=== PATIENT | female | born 1960 | race Caucasian/White ===

== ENCOUNTER → 2016-07-25 | Outpatient (CLI) | payer BC ==
[~2016-07-25] MED LIST: ACCUNEB 0.0.63 MG/3 PO; ADVAIR 250/501 EA INH; ALBUTEROL0.09 MG/A2 IH; ATIVAN1 MG PO; CARAFATE1 G1 PO; DOXYCYCLINE100 M3 PO; FLONASE ALLERG9.9 ML NAS; HYDROCODONE BIT1 T11 PO; LEXAPRO20 MG PO; MEDROL DOSEPAK4 MG PO; MOTRIN400 MG PO; NEXIUM20 MG PO; NEXIUM40 MG PO; OMNICEF300 MG PO; PREDNISONE2.5 MG PO; PROAIR HFA0.09 MG/AC PO; PROZAC20 MG PO; SINGULAIR10 MG PO; TESSALON PERLE200 MG PO; VICODIN ES 7501 TAB PO
== END | disposition home or self-care (01) ==
LOC: MRI 06:50
DX: M51.37 Other intervertebral disc degeneration, lumbosacral region (principal); M47.896 Other spondylosis, lumbar region; M54.5 Low back pain; Z91.81 History of falling

== ENCOUNTER → 2016-08-01 | Outpatient (CLI) | payer BC | END | disposition home or self-care (01) | LOC: LAB 20:05 | DX: R19.7 Diarrhea, unspecified (principal) ==

== ENCOUNTER → 2017-02-02 | Outpatient (CLI) | payer BC | END | disposition home or self-care (01) | LOC: MAMMO 12:35 | DX: N64.4 Mastodynia (principal) ==

== ENCOUNTER → 2019-01-01 | Outpatient (CLI) | payer BC | END | disposition home or self-care (01) | LOC: RAD 12:55 | DX: M81.0 Age-related osteoporosis without current pathological fracture (principal); Z78.0 Asymptomatic menopausal state; Z90.710 Acquired absence of both cervix and uterus ==

== ENCOUNTER → 2019-04-11 | Outpatient (CLI) | payer BC | END | disposition home or self-care (01) | LOC: RAD 11:45 | DX: M41.86 Other forms of scoliosis, lumbar region (principal); M48.061 Spinal stenosis, lumbar region without neurogenic claudication ==

== ENCOUNTER → 2019-05-13 | Outpatient (CLI) | payer BC | END | disposition home or self-care (01) | LOC: RAD 11:37 | DX: R05 Cough (principal); R06.02 Shortness of breath ==

== ENCOUNTER → 2019-06-13 | Outpatient (CLI) | payer BC | END | disposition home or self-care (01) | LOC: CT 10:33 | DX: R05 Cough (principal); R06.02 Shortness of breath; R06.2 Wheezing ==

== ENCOUNTER → 2019-12-27 | Outpatient (CLI) | payer BC | END | disposition home or self-care (01) | LOC: CARD 11:29 | PROVIDERS: ATTEND Nurse Practitioner Family | DX: I47.2 Ventricular tachycardia (principal); R07.89 Other chest pain; R06.02 Shortness of breath; E78.5 Hyperlipidemia, unspecified; Z23 Encounter for immunization ==

== ENCOUNTER → 2020-02-13 | Outpatient (CLI) | payer BC ==
[~2020-02-13] MED LIST changes: +ZITHROMAX250 MG PO
== END | disposition home or self-care (01) ==
LOC: COVID19 03:08
PROVIDERS: ATTEND Nurse Practitioner Family
DX: U07.1 COVID-19 (principal)

== ENCOUNTER 2020-03-28 18:20 | Emergency (ER) | payer BC ==
[~2020-03-28] VITALS: Wt 86.2 kg
[~2020-03-28 18:20] MED LIST changes: -ZITHROMAX250 MG PO
[2020-03-28 21:22] LABS: BASO % 0.4 % (0.0-1.0); EOS # 0.2 10*3/uL (0.0-0.4); EOS % 2.7 % (1.0-4.0); HEMATOCRIT 43.6 % (37.0-47.0); LYMPH # 0.7 10*3/uL (1.3-4.4); LYMPH % 7.6 % (27.0-41.0); MEAN CELL VOLUME 86.2 fl (81.0-99.0); MEAN CORPUSCULAR HGB 28.3 pg (27.0-31.0); MEAN CORPUSCULAR HGB CONC 32.8 g/dl (33.0-37.0); MEAN PLATELET VOLUME 9.4 fl (9.6-12.3); MONO # 0.3 10*3/uL (0.1-1.0); NEUT # 7.7 10*3/uL (2.3-7.9); NEUT % 85.9 % (47.0-73.0); PLATELET COUNT AUTOMATED 270 10*3/uL (130-400); RED BLOOD COUNT 5.06 10*6/uL (4.10-5.10); RED CELL DISTRI WIDTH 13.2 % (0-14.5)
[2020-03-28 21:39] LABS: ALBUMIN 4.4 gm/dl (3.1-4.5); CREATININE 1.22 mg/dL (0.55-1.02); POTASSIUM 3.6 mmol/L (3.5-5.1); TOTAL PROTEIN 7.9 gm/dL (6.4-8.2)
[2020-03-28 22:17] VITALS: BP 157/81
[2020-03-28] MEDS ORDERED: ZITHROMAX250 MG PO (22:24)
== END 2020-03-28 22:30 | disposition home or self-care (01) ==
LOC: ED 18:20
PROVIDERS: Physician Assistant
DX: J18.9 Pneumonia, unspecified organism (principal); Z88.1 Allergy status to other antibiotic agents; Z79.899 Other long term (current) drug therapy

== ENCOUNTER → 2020-04-28 | Outpatient (CLI) | payer BC ==
[~2020-04-28] MED LIST changes: +ALBUTEROL0.63 MG/3 INH; +LIPITOR10 MG PO; +PREDNISONE10 MG PO; +PROTONIX40 MG PO; +ZITHROMAX250 MG PO
== END | disposition home or self-care (01) ==
LOC: RAD 11:00
PROVIDERS: ATTEND Nurse Practitioner Family
DX: R05 Cough (principal); J18.9 Pneumonia, unspecified organism; U07.1 COVID-19

== ENCOUNTER 2020-05-04 15:50 | Inpatient (IN) | payer BC ==
[~2020-05-04] VITALS: Ht 170.1 cm; Wt 86.2 kg
[~2020-05-04 15:50] MED LIST changes: -ALBUTEROL0.63 MG/3 INH; -LIPITOR10 MG PO; -PREDNISONE10 MG PO; -PROTONIX40 MG PO
[2020-05-04 15:53] VITALS: BP 164/82
[2020-05-04 16:07] VITALS: BP 161/89
[2020-05-04 17:42] LABS: BASO % 0.5 % (0.0-1.0); EOS # 0.1 10*3/uL (0.0-0.4); EOS % 1.5 % (1.0-4.0); HEMATOCRIT 41.9 % (37.0-47.0); LYMPH # 0.7 10*3/uL (1.3-4.4); LYMPH % 9.4 % (27.0-41.0); MEAN CELL VOLUME 84.1 fl (81.0-99.0); MEAN CORPUSCULAR HGB 28.1 pg (27.0-31.0); MEAN CORPUSCULAR HGB CONC 33.4 g/dl (33.0-37.0); MEAN PLATELET VOLUME 9.5 fl (9.6-12.3); MONO # 0.2 10*3/uL (0.1-1.0); MONO % 2.8 % (3.0-9.0); NEUT # 6.3 10*3/uL (2.3-7.9); NEUT % 85.4 % (47.0-73.0); PLATELET COUNT AUTOMATED 248 10*3/uL (130-400); RED BLOOD COUNT 4.98 10*6/uL (4.10-5.10); RED CELL DISTRI WIDTH 12.8 % (0-14.5); WHITE BLOOD COUNT 7.4 10*3/uL (4.8-10.8)
[2020-05-04 17:58] LABS: ALKALINE PHOSPHATASE 95 U/L (45-117); BUN 11 mg/dl (7-24); CHLORIDE 110 mmol/L (98-107); CREATININE 1.11 mg/dL (0.55-1.02); POTASSIUM 2.9 mmol/L (3.5-5.1); SGOT/AST 14 IU/L (3-35); SGPT/ALT 22 U/L (12-78); SODIUM 142 mmol/L (136-145); TOTAL PROTEIN 7.1 gm/dL (6.4-8.2)
[2020-05-04 18:07] VITALS: BP 145/75
[2020-05-04 18:10] LABS: TROPONIN I < 0.015 ng/ml (<0.045)
[2020-05-04 22:08] VITALS: BP 129/85
[2020-05-05 02:30] VITALS: BP 157/92
[2020-05-05] MEDS ORDERED: PROTONIX40 MG PO (04:32)
[2020-05-05] MEDS ORDERED: LIPITOR10 MG PO (04:33)
[2020-05-05 06:48] LABS: HEMATOCRIT 40.3 % (37.0-47.0); MEAN CORPUSCULAR HGB 28.5 pg (27.0-31.0); MEAN CORPUSCULAR HGB CONC 32.8 g/dl (33.0-37.0); MEAN PLATELET VOLUME 9.6 fl (9.6-12.3); PLATELET COUNT AUTOMATED 262 10*3/uL (130-400); RED BLOOD COUNT 4.63 10*6/uL (4.10-5.10); RED CELL DISTRI WIDTH 13.1 % (0-14.5); WHITE BLOOD COUNT 7.2 10*3/uL (4.8-10.8)
[2020-05-05 07:12] LABS: TOTAL CELLS COUNTED 100 #CELLS
[2020-05-05 07:13] LABS: BURR CELLS FEW; PLATELET SUFFICIENCY NORMAL (NORMAL)
[2020-05-05 07:14] LABS: ACT PARTIAL THROMBO TIME 28.2 SECONDS (20.0-32.1)
[2020-05-05 07:27] LABS: ALBUMIN 3.6 gm/dl (3.1-4.5); ALKALINE PHOSPHATASE 90 U/L (45-117); BUN 9 mg/dl (7-24); CHLORIDE 111 mmol/L (98-107); CHOLESTEROL 163 mg/dL (<200); CREATININE 0.89 mg/dL (0.55-1.02); POTASSIUM 3.7 mmol/L (3.5-5.1); SGOT/AST 11 IU/L (3-35); SGPT/ALT 22 U/L (12-78); SODIUM 138 mmol/L (136-145); TOTAL PROTEIN 6.9 gm/dL (6.4-8.2); TRIGLYCERIDES 43 mg/dl (<150); VLDL CHOLESTEROL 9 mg/dL (6-40)
[2020-05-05 07:29] LABS: VITAMIN D, 25-HYDROXY 32.9 ng/mL (30-100)
[2020-05-05 07:34] LABS: FREE T4 1.26 ng/dl (0.76-1.46); HDL CHOLESTEROL 57 mg/dl (40-60); LDL CHOLESTEROL 97 mg/dL (9-159)
[2020-05-05 08:00] VITALS: BP 142/82
[2020-05-05 12:00] VITALS: BP 152/74
[2020-05-05 16:00] VITALS: BP 137/68
[2020-05-05 20:00] VITALS: BP 130/75
[2020-05-06] VITALS: BP 137/76
[2020-05-06 08:00] VITALS: BP 122/66
[2020-05-06 12:00] VITALS: BP 126/68
[2020-05-06 16:00] VITALS: BP 137/71
[2020-05-06 20:01] VITALS: BP 148/79
[2020-05-07] VITALS: BP 142/82
[2020-05-07 08:00] VITALS: BP 174/83
[2020-05-07 12:00] VITALS: BP 149/67
[2020-05-07 16:00] VITALS: BP 132/86
[2020-05-07 20:00] VITALS: BP 150/80
[2020-05-08] VITALS (8 sets, daily range): BP systolic 128–146; BP diastolic 66–96
[2020-05-08 06:20] LABS: BASO % 0.1 % (0.0-1.0); HEMATOCRIT 39.7 % (37.0-47.0); LYMPH # 0.8 10*3/uL (1.3-4.4); LYMPH % 8.1 % (27.0-41.0); MEAN CELL VOLUME 87.6 fl (81.0-99.0); MEAN CORPUSCULAR HGB 28.7 pg (27.0-31.0); MEAN CORPUSCULAR HGB CONC 32.7 g/dl (33.0-37.0); MEAN PLATELET VOLUME 9.5 fl (9.6-12.3); MONO # 0.4 10*3/uL (0.1-1.0); MONO % 3.7 % (3.0-9.0); NEUT % 86.8 % (47.0-73.0); PLATELET COUNT AUTOMATED 252 10*3/uL (130-400); RED BLOOD COUNT 4.53 10*6/uL (4.10-5.10); RED CELL DISTRI WIDTH 13.3 % (0-14.5); WHITE BLOOD COUNT 10.3 10*3/uL (4.8-10.8)
[2020-05-08 06:32] LABS: ALBUMIN 3.4 gm/dl (3.1-4.5); BUN 16 mg/dl (7-24); CHLORIDE 112 mmol/L (98-107); SODIUM 143 mmol/L (136-145)
[2020-05-08 06:35] LABS: ALKALINE PHOSPHATASE 84 U/L (45-117); CREATININE 0.95 mg/dL (0.55-1.02); SGOT/AST 12 IU/L (3-35); SGPT/ALT 25 U/L (12-78); TOTAL PROTEIN 6.2 gm/dL (6.4-8.2)
[2020-05-09] VITALS: BP 132/81
[2020-05-09 08:00] VITALS: BP 134/83
[2020-05-09 11:07] LABS: ACID FAST SPEC PROCESSING Concentration (.)
[2020-05-09 12:00] VITALS: BP 162/76
[2020-05-09] MEDS ORDERED: ALBUTEROL0.63 MG/3 INH (15:00)
[2020-05-09] MEDS ORDERED: DOXYCYCLINE100 M3 PO (15:00)
[2020-05-09] MEDS ORDERED: PREDNISONE10 MG PO (15:00)
[2020-05-09 16:00] VITALS: BP 92/76
[2020-06-11 15:08] LABS: M GORDONAE Not Indicated (.); M KANSASII Not Indicated (.); M TUBERCULOSIS COMPLEX Negative (.)
[2020-06-12 09:35] LABS: ACID FAST CULTURE Positive (.); M AVIUM COMPLEX Positive (.)
== END 2020-05-09 18:35 | disposition home or self-care (01) | DRG 871 ==
LOC: ED 15:50 → EDHOLD 19:44 → 5E 19:44
PROVIDERS: Hospitalist; Internal Medicine Critical Care Medicine; Physician Assistant; Registered Nurse; ADMIT Internal Medicine; ATTEND Internal Medicine
PROC: 0BC98ZZ Extirpation of Matter from Lingula Bronchus, Via Natural or Artificial Opening Endoscopic (ICD-10-PCS; principal; 2020-05-08)
PROC: 0BC48ZZ Extirpation of Matter from Right Upper Lobe Bronchus, Via Natural or Artificial Opening Endoscopic (ICD-10-PCS; 2020-05-08)
PROC: 0BC88ZZ Extirpation of Matter from Left Upper Lobe Bronchus, Via Natural or Artificial Opening Endoscopic (ICD-10-PCS; 2020-05-08)
PROC: 0BC58ZZ Extirpation of Matter from Right Middle Lobe Bronchus, Via Natural or Artificial Opening Endoscopic (ICD-10-PCS; 2020-05-08)
PROC: 0BC38ZZ Extirpation of Matter from Right Main Bronchus, Via Natural or Artificial Opening Endoscopic (ICD-10-PCS; 2020-05-08)
PROC: 0BC78ZZ Extirpation of Matter from Left Main Bronchus, Via Natural or Artificial Opening Endoscopic (ICD-10-PCS; 2020-05-08)
PROC: 0BC68ZZ Extirpation of Matter from Right Lower Lobe Bronchus, Via Natural or Artificial Opening Endoscopic (ICD-10-PCS; 2020-05-08)
PROC: 0BCB8ZZ Extirpation of Matter from Left Lower Lobe Bronchus, Via Natural or Artificial Opening Endoscopic (ICD-10-PCS; 2020-05-08)
PROC: 0BC18ZZ Extirpation of Matter from Trachea, Via Natural or Artificial Opening Endoscopic (ICD-10-PCS; 2020-05-08)
DX: A41.9 Sepsis, unspecified organism (principal); J18.9 Pneumonia, unspecified organism; N17.0 Acute kidney failure with tubular necrosis; E87.2 Acidosis; J45.41 Moderate persistent asthma with (acute) exacerbation; R65.20 Severe sepsis without septic shock; R73.9 Hyperglycemia, unspecified; E87.6 Hypokalemia; I25.10 Atherosclerotic heart disease of native coronary artery without angina pectoris; F41.9 Anxiety disorder, unspecified; K21.9 Gastro-esophageal reflux disease without esophagitis; N18.9 Chronic kidney disease, unspecified; E78.2 Mixed hyperlipidemia; E87.8 Other disorders of electrolyte and fluid balance, not elsewhere classified; E66.3 Overweight; M16.10 Unilateral primary osteoarthritis, unspecified hip; J40 Bronchitis, not specified as acute or chronic; Z20.822 Contact with and (suspected) exposure to COVID-19; Z88.1 Allergy status to other antibiotic agents; Z88.8 Allergy status to other drugs, medicaments and biological substances; Z79.899 Other long term (current) drug therapy; Z79.51 Long term (current) use of inhaled steroids; Z90.710 Acquired absence of both cervix and uterus; Z90.49 Acquired absence of other specified parts of digestive tract; Z82.5 Family history of asthma and other chronic lower respiratory diseases; Z83.79 Family history of other diseases of the digestive system; Z86.16 Personal history of COVID-19; Z68.29 Body mass index [BMI] 29.0-29.9, adult

== ENCOUNTER → 2020-10-07 | Outpatient (CLI) | payer BC ==
[~2020-10-07] MED LIST changes: +ALBUTEROL0.63 MG/3 INH; +LIPITOR10 MG PO; +PREDNISONE10 MG PO; +PROTONIX40 MG PO
== END | disposition home or self-care (01) ==
LOC: MAMMO 07:30
PROVIDERS: ATTEND Nurse Practitioner Family
DX: Z12.31 Encounter for screening mammogram for malignant neoplasm of breast (principal); N63.21 Unspecified lump in the left breast, upper outer quadrant

== ENCOUNTER → 2021-06-10 | Outpatient (CLI) | payer BC | END | disposition home or self-care (01) | LOC: RAD 15:31 | PROVIDERS: ATTEND Nurse Practitioner Family | DX: M47.816 Spondylosis without myelopathy or radiculopathy, lumbar region (principal) ==

== ENCOUNTER → 2022-06-06 | Outpatient (CLI) | payer BC ==
[2022-06-06 07:18] LABS: BASO # 0.1 10*3/uL (0.0-0.1); BASO % 1.3 % (0.0-1.0); EOS # 0.3 10*3/uL (0.0-0.4); EOS % 5.9 % (1.0-4.0); HEMATOCRIT 44.9 % (37.0-47.0); LYMPH # 1.5 10*3/uL (1.3-4.4); LYMPH % 28.4 % (27.0-41.0); MEAN CELL VOLUME 84.7 fl (81.0-99.0); MEAN CORPUSCULAR HGB 28.3 pg (27.0-31.0); MEAN CORPUSCULAR HGB CONC 33.4 g/dl (33.0-37.0); MEAN PLATELET VOLUME 9.3 fl (9.6-12.3); MONO # 0.4 10*3/uL (0.1-1.0); MONO % 7.3 % (3.0-9.0); NEUT % 56.9 % (47.0-73.0); PLATELET COUNT AUTOMATED 248 10*3/uL (130-400); RED CELL DISTRI WIDTH 12.3 % (0-14.5); WHITE BLOOD COUNT 5.2 10*3/uL (4.8-10.8)
[2022-06-06 07:36] LABS: TOTAL PROTEIN 7.1 gm/dL (6.0-8.0)
== END | disposition home or self-care (01) ==
LOC: LAB 01:12 → US 08:30 → LAB 08:30
PROVIDERS: ATTEND Nurse Practitioner Family
DX: Z12.31 Encounter for screening mammogram for malignant neoplasm of breast (principal); N63.21 Unspecified lump in the left breast, upper outer quadrant; F32.9 Major depressive disorder, single episode, unspecified; E78.5 Hyperlipidemia, unspecified; E83.41 Hypermagnesemia; R79.89 Other specified abnormal findings of blood chemistry

== ENCOUNTER 2022-11-18 12:40 | Emergency (ER) | payer OTHER ==
[~2022-11-18] VITALS: Ht 170.1 cm; Wt 86.2 kg
[2022-11-18 13:07] LABS: BASO # 0.1 10*3/uL (0.0-0.1); BASO % 0.6 % (0.0-1.0); EOS # 0.3 10*3/uL (0.0-0.4); EOS % 3.1 % (1.0-4.0); HEMATOCRIT 43.6 % (37.0-47.0); LYMPH # 1.8 10*3/uL (1.3-4.4); LYMPH % 21.9 % (27.0-41.0); MEAN CELL VOLUME 84.7 fl (81.0-99.0); MEAN CORPUSCULAR HGB 29.1 pg (27.0-31.0); MEAN CORPUSCULAR HGB CONC 34.4 g/dl (33.0-37.0); MEAN PLATELET VOLUME 9.3 fl (9.6-12.3); MONO # 0.6 10*3/uL (0.1-1.0); MONO % 6.7 % (3.0-9.0); NEUT # 5.5 10*3/uL (2.3-7.9); PLATELET COUNT AUTOMATED 258 10*3/uL (130-400); RED BLOOD COUNT 5.15 10*6/uL (4.10-5.10); RED CELL DISTRI WIDTH 12.5 % (0-14.5); WHITE BLOOD COUNT 8.3 10*3/uL (4.8-10.8)
[2022-11-18] MEDS ORDERED: ROSUVASTATIN CA20 MG PO (13:23)
[2022-11-18] MEDS ORDERED: MONTELUKAST SOD10 MG PO (13:24)
[2022-11-18] MEDS ORDERED: FLUOXETINE HCL40 MG PO (13:24)
[2022-11-18] MEDS ORDERED: VIBRAMYCIN100 MG PO (13:24)
[2022-11-18 13:25] LABS: LIPASE 30 U/L (12-53)
[2022-11-18] MEDS ORDERED: FLOVENT HFA12 GM INH (13:26)
[2022-11-18] MEDS ORDERED: PANTOPRAZOLE SO40 MG PO (13:26)
[2022-11-18 13:27] LABS: ACT PARTIAL THROMBO TIME 26.7 SECONDS (20.0-32.1)
[2022-11-18 13:28] LABS: ALKALINE PHOSPHATASE 106 U/L (46-116); BUN 11 mg/dl (9-23); CHLORIDE 106 mmol/L (98-107); POTASSIUM 3.4 mmol/L (3.4-5.1); SGPT/ALT 10 U/L (10-49); TOTAL PROTEIN 6.5 gm/dL (6.0-8.0)
[2022-11-18 13:36] VITALS: BP 159/54
== END 2022-11-18 16:28 | disposition home or self-care (01) ==
LOC: ED 12:40
PROVIDERS: Emergency Medicine
DX: R07.89 Other chest pain (principal); R06.02 Shortness of breath; F32.A Depression, unspecified; J45.909 Unspecified asthma, uncomplicated; Z88.6 Allergy status to analgesic agent; Z88.8 Allergy status to other drugs, medicaments and biological substances; Z90.49 Acquired absence of other specified parts of digestive tract; Z90.89 Acquired absence of other organs; Z98.890 Other specified postprocedural states; Z90.710 Acquired absence of both cervix and uterus

== ENCOUNTER → 2022-11-28 | Outpatient (CLI) | payer OTHER ==
[~2022-11-28] MED LIST changes: +FLOVENT HFA12 GM INH; +FLUOXETINE HCL40 MG PO; +MONTELUKAST SOD10 MG PO; +PANTOPRAZOLE SO40 MG PO; +ROSUVASTATIN CA20 MG PO; +VIBRAMYCIN100 MG PO
[2022-11-28 08:07] LABS: BASO % 0.7 % (0.0-1.0); EOS # 0.2 10*3/uL (0.0-0.4); EOS % 3.8 % (1.0-4.0); HEMATOCRIT 44.1 % (37.0-47.0); LYMPH # 1.3 10*3/uL (1.3-4.4); LYMPH % 21.7 % (27.0-41.0); MEAN CELL VOLUME 86.5 fl (81.0-99.0); MEAN CORPUSCULAR HGB 28.6 pg (27.0-31.0); MEAN CORPUSCULAR HGB CONC 33.1 g/dl (33.0-37.0); MEAN PLATELET VOLUME 9.6 fl (9.6-12.3); MONO # 0.4 10*3/uL (0.1-1.0); MONO % 7.3 % (3.0-9.0); NEUT # 3.8 10*3/uL (2.3-7.9); NEUT % 66.2 % (47.0-73.0); PLATELET COUNT AUTOMATED 210 10*3/uL (130-400); RED CELL DISTRI WIDTH 12.5 % (0-14.5); WHITE BLOOD COUNT 5.8 10*3/uL (4.8-10.8)
[2022-11-28 08:34] LABS: ALKALINE PHOSPHATASE 94 U/L (46-116); BUN 12 mg/dl (9-23); CHLORIDE 112 mmol/L (98-107); CHOLESTEROL 150 mg/dL (<200); LDL CHOLESTEROL 73 mg/dL (9-159); POTASSIUM 4.4 mmol/L (3.4-5.1); SGPT/ALT 12 U/L (10-49); TOTAL PROTEIN 6.8 gm/dL (6.0-8.0); TRIGLYCERIDES 147 mg/dl (<150)
== END | disposition home or self-care (01) ==
LOC: LAB 07:43
PROVIDERS: ATTEND Nurse Practitioner Family
DX: E78.5 Hyperlipidemia, unspecified (principal)

== ENCOUNTER → 2023-01-11 | Outpatient (CLI) | payer OTHER | END | disposition home or self-care (01) | LOC: CARD 09:54 | PROVIDERS: ATTEND Nurse Practitioner Family | DX: R00.2 Palpitations (principal); R06.02 Shortness of breath; F41.9 Anxiety disorder, unspecified; E78.5 Hyperlipidemia, unspecified ==

== ENCOUNTER → 2023-07-03 | Outpatient (CLI) | payer OTHER ==
[2023-07-03 07:40] LABS: BASO % 0.9 % (0.0-1.0); EOS # 0.4 10*3/uL (0.0-0.4); EOS % 8.8 % (1.0-4.0); HEMATOCRIT 42.9 % (37.0-47.0); LYMPH # 1.3 10*3/uL (1.3-4.4); LYMPH % 28.2 % (27.0-41.0); MEAN CELL VOLUME 84.6 fl (81.0-99.0); MEAN CORPUSCULAR HGB CONC 33.1 g/dl (33.0-37.0); MEAN PLATELET VOLUME 9.1 fl (9.6-12.3); MONO # 0.4 10*3/uL (0.1-1.0); MONO % 7.5 % (3.0-9.0); NEUT # 2.5 10*3/uL (2.3-7.9); NEUT % 54.4 % (47.0-73.0); PLATELET COUNT AUTOMATED 222 10*3/uL (130-400); RED BLOOD COUNT 5.07 10*6/uL (4.10-5.10); RED CELL DISTRI WIDTH 12.5 % (0-14.5); WHITE BLOOD COUNT 4.7 10*3/uL (4.8-10.8)
[2023-07-03 08:06] LABS: ALKALINE PHOSPHATASE 84 U/L (46-116); BUN 8 mg/dl (9-23); CHLORIDE 110 mmol/L (98-107); CHOLESTEROL 142 mg/dL (<200); LDL CHOLESTEROL 72 mg/dL (9-159); POTASSIUM 3.7 mmol/L (3.4-5.1); SGPT/ALT 11 U/L (5-49); TOTAL PROTEIN 6.8 gm/dL (6.0-8.0); TRIGLYCERIDES 113 mg/dl (<150)
== END | disposition home or self-care (01) ==
LOC: LAB 07:27 → MAMMO 08:30
PROVIDERS: ATTEND Nurse Practitioner Family
DX: Z12.31 Encounter for screening mammogram for malignant neoplasm of breast (principal); Z12.12 Encounter for screening for malignant neoplasm of rectum; Z12.11 Encounter for screening for malignant neoplasm of colon; F41.9 Anxiety disorder, unspecified; E78.5 Hyperlipidemia, unspecified; J30.9 Allergic rhinitis, unspecified

== ENCOUNTER → 2023-08-09 | Outpatient (CLI) | payer OTHER | END | disposition home or self-care (01) | LOC: RAD 14:39 | PROVIDERS: ATTEND Nurse Practitioner Family | DX: R05.1 Acute cough (principal); R06.2 Wheezing ==

== ENCOUNTER → 2023-11-29 | Outpatient (CLI) | payer MEDICARE ==
[2023-11-29 09:21] LABS: BASO # 0.1 10*3/uL (0.0-0.1); EOS # 0.4 10*3/uL (0.0-0.4); EOS % 8.6 % (1.0-4.0); HEMATOCRIT 44.1 % (37.0-47.0); LYMPH # 1.1 10*3/uL (1.3-4.4); LYMPH % 23.2 % (27.0-41.0); MEAN CELL VOLUME 85.5 fl (81.0-99.0); MEAN CORPUSCULAR HGB 27.7 pg (27.0-31.0); MEAN CORPUSCULAR HGB CONC 32.4 g/dl (33.0-37.0); MEAN PLATELET VOLUME 9.3 fl (9.6-12.3); MONO # 0.4 10*3/uL (0.1-1.0); MONO % 8.6 % (3.0-9.0); NEUT # 2.9 10*3/uL (2.3-7.9); NEUT % 58.4 % (47.0-73.0); PLATELET COUNT AUTOMATED 245 10*3/uL (130-400); RED BLOOD COUNT 5.16 10*6/uL (4.10-5.10); RED CELL DISTRI WIDTH 12.4 % (0-14.5); WHITE BLOOD COUNT 4.9 10*3/uL (4.8-10.8)
[2023-11-29 09:52] LABS: POTASSIUM 4.1 mmol/L (3.4-5.1); TOTAL PROTEIN 7.1 gm/dL (6.0-8.0)
== END | disposition home or self-care (01) ==
LOC: LAB 09:06
PROVIDERS: ATTEND Nurse Practitioner Family
DX: E78.5 Hyperlipidemia, unspecified (principal); J30.9 Allergic rhinitis, unspecified; J45.40 Moderate persistent asthma, uncomplicated; R41.3 Other amnesia

== ENCOUNTER → 2023-12-18 | Outpatient (CLI) | payer MEDICARE ==
[2023-12-18 11:28] LABS: POTASSIUM 4.1 mmol/L (3.4-5.1); TOTAL PROTEIN 6.6 gm/dL (6.0-8.0)
== END | disposition home or self-care (01) ==
LOC: LAB 10:29
PROVIDERS: ATTEND Nurse Practitioner Family
DX: R79.89 Other specified abnormal findings of blood chemistry (principal); R89.9 Unspecified abnormal finding in specimens from other organs, systems and tissues

== ENCOUNTER 2024-10-23 18:44 | Emergency (ER) | payer OTHER, MEDICARE ==
[2024-10-23 18:54] VITALS: BP 152/96
[2024-10-23] MEDS ORDERED: Albuterol Sulf/Ipratropium 3 ML VIAL NEB ONE (19:00)
[2024-10-23 19:15] LABS: BASO # 0.1 10*3/uL (0.0-0.1); BASO % 1.0 % (0.0-1.0); EOS # 0.7 10*3/uL (0.0-0.4); EOS % 10.8 % (1.0-4.0); MEAN CELL VOLUME 85.9 fl (81.0-99.0); MEAN CORPUSCULAR HGB 27.6 pg (27.0-31.0); MEAN PLATELET VOLUME 8.9 fl (9.6-12.3); MONO # 0.6 10*3/uL (0.1-1.0); MONO % 9.0 % (3.0-9.0); NEUT # 3.5 10*3/uL (2.3-7.9); NEUT % 54.9 % (47.0-73.0); NUCLEATED RED BLOOD CELL 0.0 % (0.0-0.0); NUCLEATED RED BLOOD CELL 0.0 10*3/uL (0.0-0.0); PLATELET COUNT AUTOMATED 250 10*3/uL (130-400); RED CELL DISTRI WIDTH 13.1 % (0-14.5)
[2024-10-23 19:34] LABS: BUN 11.0 mg/dl (9-23)
[2024-10-23] MEDS ORDERED: SODIUM CHLORIDE 0.9% 1,000 ML IV ONE (20:15)
[2024-10-23] MEDS ORDERED: AZITHROMYCIN 250 MG TAB PO ONE (22:00)
[2024-10-23] MEDS ORDERED: PREDNISONE20 M1 PO (22:00)
[2024-10-23] MEDS ORDERED: AVPAK AZITHROM250 M1 PO (22:00)
== END 2024-10-23 22:06 | disposition home or self-care (01) ==
LOC: ED 18:44
PROVIDERS: Nurse Practitioner Family
DX: J45.901 Unspecified asthma with (acute) exacerbation (principal); N18.9 Chronic kidney disease, unspecified; R07.89 Other chest pain; F41.9 Anxiety disorder, unspecified; I25.10 Atherosclerotic heart disease of native coronary artery without angina pectoris; K21.9 Gastro-esophageal reflux disease without esophagitis; E78.5 Hyperlipidemia, unspecified; Z88.1 Allergy status to other antibiotic agents; Z79.899 Other long term (current) drug therapy; Z90.49 Acquired absence of other specified parts of digestive tract; Z98.890 Other specified postprocedural states; Z90.710 Acquired absence of both cervix and uterus

== ENCOUNTER → 2024-12-06 | Outpatient (CLI) | payer MEDICARE ==
[~2024-12-06] MED LIST changes: +AVPAK AZITHROM250 M1 PO; +PREDNISONE20 M1 PO
== END | disposition home or self-care (01) ==
LOC: RAD 00:43
PROVIDERS: ATTEND Nurse Practitioner Primary Care
DX: M81.0 Age-related osteoporosis without current pathological fracture (principal)

== ENCOUNTER → 2025-03-11 | Outpatient (CLI) | payer MEDICARE | END | disposition home or self-care (01) | LOC: RAD 14:35 | PROVIDERS: ATTEND Nurse Practitioner Primary Care | DX: M17.11 Unilateral primary osteoarthritis, right knee (principal); M25.761 Osteophyte, right knee ==